=== PATIENT | female | born 1990 | race Caucasian/White ===

== ENCOUNTER 2018-02-25 22:15 | Emergency (ER) | payer BC ==
[2018-02-25] MEDS ORDERED: Ketorolac 10 MG Tab PO ONE (22:16)
[2018-02-25] MEDS ORDERED: Ondansetron 4 MG Tab.DIS PO ONE (22:16)
[2018-02-25 22:40] LABS: CHLORIDE,CL 104 mEq/L (98-106); SODIUM,NA 139 mEq/L (136-145)
[2018-02-25] MEDS: Sodium Chloride 0.9% 1,000 ML IV ONE (22:41)
[2018-02-25] MEDS: fentaNYL 100 MCG/2 ML SDV IVPUSH ONE (22:44)
--- NOTE | 2018-02-25 22:44 | EDM.PDOC ---
ED HPI GENERAL MEDICAL PROBLEM - General Chief Complaint: General Stated Complaint: headache, nausea Time Seen by Provider: 02/25/18 22:21 - History of Present Illness INITIAL COMMENTS - FREE TEXT/NARRATIVE: Charleen is a 27 year old female who presents to the ED with c/o nausea, vomiting, headache, and back ache. She was seen in the clinic earlier today for threatened . She was [place] [facility] [place] US revealing no signs of intrauterine or extrauterine . She had positive test on . She did see OB provider at [facility] yesterday for initial OB exam. She reports she had lab work that showed UTI but has not heard of other results. Patent reports she continues to have back pain that radiates around to her abdomen. She reports she has been very emotional today and has been crying a lot. She reports she has had a severe headache. She reports she continues to have vaginal bleeding with cramping. Has changed pad 4 x today. Denies any other symptoms. Onset: Today Onset Date: 02/26/18 Duration: Constant Location: Reports: Head Quality: Reports: Ache Severity: Moderate Improves with: Reports: None Worsens with: Reports: None Associated Symptoms: Reports: Headaches, Nausea/Vomiting. 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 ED EXAM, GENERAL - Physical Exam Exam: See Below Exam Limited By: No Limitations General Appearance: Alert, WD/WN, No Apparent Distress Eye Exam: Bilateral Eye: PERRL Head: Atraumatic, Normocephalic Neck: Normal Inspection, Supple, Non-Tender, Full Range of Motion Respiratory/Chest: No Respiratory Distress, Lungs Clear, Normal Breath Sounds, No Accessory Muscle Use, Chest Non-Tender Cardiovascular: Normal Peripheral Pulses, Regular Rate, Rhythm, No Edema, No Gallop, No JVD, No Murmur, No Rub GI/Abdominal: Normal Bowel Sounds, Soft, No Organomegaly, No Distention, No Abnormal Bruit, No Mass, Pelvis Stable, Tender (RLQ, LLQ) Back Exam: Normal Inspection, Full Range of Motion. No: CVA Tenderness (L), CVA Tenderness (R) Extremities: Normal Inspection, Normal Range of Motion, Non-Tender, Normal Capillary Refill, No Pedal Edema Neurological: Alert, Oriented, Normal Cognition Psychiatric: Tearful Skin Exam: Warm, Dry, Intact, Normal Color, No Rash Lymphatic: No Adenopathy Course - Orders/Labs/Meds Orders: Active Orders 24 hr Category Date Time Status Ketorolac [Take Home: Ketorolac 10 MG, 4 Tab Pack] Med 02/25/18 23:52 Once 2 packet PO ONETIME ONE Ondansetron [Take Home: Ondansetron ODT 4 MG, 2 Tab Med 02/25/18 23:53 Once Pack] 2 packet PO ONETIME ONE Ondansetron [Zofran] Med 02/25/18 22:27 Active 4 mg IVPUSH Q6H PRN cefTRIAXone [Rocephin] Med 02/25/18 22:45 Active 1 gm IVPUSH Q24H Medication Orders Ceftriaxone Sodium (Rocephin) 1 gm IVPUSH Q24H KHRIS Last Admin: 02/25/18 23:00 Dose: 1 gm Ondansetron HCl (Zofran) 4 mg IVPUSH Q6H PRN PRN Reason: Nausea Last Admin: 02/25/18 22:47 Dose: 4 mg Labs: Laboratory Tests 02/25/18 02/25/18 Range/Units 22:17 22:24 WBC 9.1 (5.0-10.0) 10^3/uL RBC 4.23 (4.00-5.50) 10^6/uL Hgb 11.5 L (12.0-16.0) g/dL Hct 36.2 L (37.0-47.0) % MCV 85.6 (82.0-94.0) fL MCH 27.2 (27.0-32.0) pg MCHC 31.8 L (33.0-38.0) g/dL RDW Coeff of Guera 13.9 (11.0-15.0) % Plt Count 318 (150-400) 10^3/uL Neut % (Auto) 71.0 (35-85) % Lymph % (Auto) 22.1 (10-55) % Green % (Auto) 6.4 (0-16) % Eos % (Auto) 0.3 (0-5) % Baso % (Auto) 0.2 (0-3) % Neut # (Auto) 6.47 (1.80-7.00) 10^3/uL Lymph # (Auto) 2.01 (1.00-4.80) 10^3/uL Green # (Auto) 0.58 (0.00-0.80) 10^3/uL Eos # (Auto) 0.03 (0.00-0.45) 10^3/uL Baso # (Auto) 0.02 10^3/uL Sodium 139 (136-145) mEq/L Potassium 3.7 (3.5-5.0) mEq/L Chloride 104 (98-106) mEq/L Carbon Dioxide 29 (21-32) mmol/L BUN 10 (7-18) mg/dL Creatinine 0.7 (0.6-1.0) mg/dL Est Cr Clr Drug Dosing TNP Estimated GFR (MDRD) > 60 (>=60) mL/min Glucose 126 H D (75-99) mg/dL Calcium 8.6 (8.4-10.1) mg/dL Total Bilirubin 0.5 (0.0-1.0) mg/dL AST 23 (15-37) U/L ALT 34 (12-78) U/L Alkaline Phosphatase 98 (46-116) U/L Total Protein 6.6 (6.4-8.2) g/dL Albumin 3.6 (3.4-5.0) g/dL Meds: Medications Generic Name Dose Route Start Last Admin Trade Name Freq PRN Reason Stop Dose Admin Ceftriaxone Sodium 1 gm 02/25/18 22:45 02/25/18 23:00 Rocephin IVPUSH 1 gm Q24H KHRIS Administration Ondansetron HCl 4 mg 02/25/18 22:27 02/25/18 22:47 Zofran IVPUSH 4 mg Q6H PRN Administration Nausea Discontinued Medications Generic Name Dose Route Start Last Admin Trade Name Freq PRN Reason Stop Dose Admin Fentanyl 50 mcg 02/25/18 22:29 02/25/18 22:44 Sublimaze IVPUSH 02/25/18 22:30 50 mcg ONETIME ONE Administration Sodium Chloride 1,000 mls @ 999 mls/hr 02/25/18 22:23 02/25/18 22:41 Normal Saline IV 02/25/18 23:23 999 mls/hr .BOLUS ONE Administration - Re-Assessments/Exams Free Text/Narrative Re-Assessment/Exam: Discussed lab results with patient. Called [place] [facility] [place] beta hcg quant of 8.4 earlier today. Patient's headache and back ache improved with IVF, fentanyl, and zofran. She reports she is feeling much better. Admits that she has been crying most of the day. Feels comfortable with discharge home. Departure - Departure Time of Disposition: 23:53 Disposition: Home, Self-Care 01 Condition: Fair Clinical Impression: Complete miscarriage Headache Qualifiers: Headache type: unspecified Headache chronicity pattern: acute headache Intractability: not intractable Qualified Code(s): R51 - Headache Nausea & vomiting Qualifiers: Vomiting type: unspecified Vomiting Intractability: non-intractable Qualified Code(s): R11.2 - Nausea with vomiting, unspecified - Discharge Information *PRESCRIPTION DRUG MONITORING PROGRAM REVIEWED*: Not Applicable *COPY OF PRESCRIPTION DRUG MONITORING REPORT IN PATIENT MALLORY: Not Applicable Instructions: Miscarriage, [id number] Forms: ED Department Discharge Additional Instructions: Toradol every 6 hours as needed for headache/pain Zofran every 6 hours as needed for nausea Push fluids to stay hydrated Start antibiotic as prescribed by OB for UTI tomorrow morning. Did receive one dose of antibiotic this evening. Rest as much as possible the next few days Bleeding should gradually decrease over the next few days. Continue vitamin daily Follow up if as needed - My Orders Last 24 Hours: My Active Orders 02/25/18 22:27 Ondansetron [Zofran] 4 mg IVPUSH Q6H PRN 02/25/18 22:45 cefTRIAXone [Rocephin] 1 gm IVPUSH Q24H 02/25/18 23:52 Ketorolac [Take Home: Ketorolac 10 MG, 4 Tab Pack] 2 packet PO ONETIME ONE 02/25/18 23:53 Ondansetron [Take Home: Ondansetron ODT 4 MG, 2 Tab Pack] 2 packet PO ONETIME ONE - Assessment/Plan Last 24 Hours: My Active Orders 02/25/18 22:27 Ondansetron [Zofran] 4 mg IVPUSH Q6H PRN 02/25/18 22:45 cefTRIAXone [Rocephin] 1 gm IVPUSH Q24H 02/25/18 23:52 Ketorolac [Take Home: Ketorolac 10 MG, 4 Tab Pack] 2 packet PO ONETIME ONE 02/25/18 23:53 Ondansetron [Take Home: Ondansetron ODT 4 MG, 2 Tab Pack] 2 packet PO ONETIME ONE
[2018-02-25] MEDS: Ondansetron 4 MG/2 ML SDV IVPUSH PRN (22:47)
[2018-02-25] MEDS: cefTRIAXone 1 GM Vial IVPUSH SCH (23:00)
[2018-02-26] MEDS: Take Home: Ondansetron 4 MG Tab.DIS, 2 Tab Pack PO ONE (00:19)
[2018-02-26] MEDS: Take Home: Ketorolac 10 MG Tab, 4 Tab Pack PO ONE (00:19)
== END 2018-02-26 00:25 | disposition home or self-care (01) ==
LOC: CC.ED 22:15
DX: O03.9 Complete or unspecified spontaneous abortion without complication (principal); R11.2 Nausea with vomiting, unspecified
CPT/HCPCS: 36415; 80053; 85025; 96365; 96375; 99284; A9270-GY; J0696; J2405; J3010; J7030

== ENCOUNTER 2018-08-12 10:55 | Emergency (ER) | payer BC ==
[2018-08-12] MEDS ORDERED: Sodium Chloride 0.9% 10 ML Syringe FLUSH PRN (11:03)
[2018-08-12] MEDS ORDERED: Sodium Chloride 0.9% 1,000 ML IV ONE (11:05)
[2018-08-12] MEDS ORDERED: Acetaminophen 500 MG Tab PO ONE (11:13)
[2018-08-12 11:24] LABS: CHLORIDE,CL 104 mEq/L (98-106); SODIUM,NA 137 mEq/L (136-145)
--- NOTE | 2018-08-12 13:03 | EDM.PDOC ---
ED HPI GENERAL MEDICAL PROBLEM - General Chief Complaint: Syncope Stated Complaint: "passed out at work" Time Seen by Provider: 08/12/18 11:00 Source of Information: Reports: Patient History Limitations: Reports: No Limitations - History of Present Illness INITIAL COMMENTS - FREE TEXT/NARRATIVE: patient is a 27 year old female who is a AB1 who is approximately 20 weeks who has had no problems with this . who states she got lightheaded at work and had to sit down but did not pass out. She states her vision became tunneled and her ears. she states that she only had coffee and a cookie for breakfast. she denies pain and states she feels fine now . can feel baby move. 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 - Physical Exam Exam: See Below Exam Limited By: No Limitations General Appearance: Alert, WD/WN, No Apparent Distress Ears: Normal External Exam, Normal Canal, Hearing Grossly Normal, Normal TMs Nose: Normal Inspection, Normal Mucosa, No Blood Throat/Mouth: Normal Inspection, Normal Lips, Normal Teeth, Normal Gums, Normal Oropharynx, Normal Voice, No Airway Compromise Head Exam: Atraumatic, Normocephalic Neck: Normal Inspection, Supple, Non-Tender Respiratory/Chest: No Respiratory Distress, Lungs Clear, Normal Breath Sounds, No Accessory Muscle Use, Chest Non-Tender Cardiovascular: Normal Peripheral Pulses, Regular Rate, Rhythm, No Edema, No JVD GI/Abdominal: Normal Bowel Sounds, Soft, Non-Tender, No Distention, Pelvis Stable, Other (Uterus palpated at the umbilicus. ) Extremities: Normal Inspection, Normal Range of Motion, Normal Capillary Refill Psychiatric: Normal Affect, Normal Mood Skin Exam: Warm, Dry, Intact, Normal Color, No Rash Course - Vital Signs Last Recorded V/S: Last Vital Signs Temp 98.5 F 08/12/18 10:58 Pulse 87 08/12/18 10:58 Resp 18 08/12/18 10:58 BP 132/71 08/12/18 10:58 Pulse Ox 100 08/12/18 10:58 Orthostatic Blood Pressure [ 118/67 Standing] Orthostatic Blood Pressure [ 118/64 Sitting] Orthostatic Blood Pressure [ 115/70 Supine] - Orders/Labs/Meds Orders: Active Orders 24 hr Category Date Time Status Heart Tones [RC] ASDIRECTED Care 08/12/18 11:04 Orthostatic Vital Signs [RC] ASDIRECTED Care 08/12/18 11:14 Active Sodium Chloride 0.9% [Saline Flush] Med 08/12/18 11:03 Active 10 ml FLUSH ASDIRECTED PRN Saline Lock Insert [OM.PC] Routine Oth 08/12/18 11:03 Ordered Medication Orders Sodium Chloride (Saline Flush) 10 ml FLUSH ASDIRECTED PRN PRN Reason: Keep Vein Open Labs: Laboratory Tests 08/12/18 08/12/18 Range/Units 11:10 11:10 WBC 9.1 (5.0-10.0) 10^3/uL RBC 3.82 L (4.00-5.50) 10^6/uL Hgb 11.0 L (12.0-16.0) g/dL Hct 33.9 L (37.0-47.0) % MCV 88.7 (82.0-94.0) fL MCH 28.8 (27.0-32.0) pg MCHC 32.4 L (33.0-38.0) g/dL RDW Coeff of Guera 14.9 (11.0-15.0) % Plt Count 205 (150-400) 10^3/uL MPV 8.6 fL Sodium 137 (136-145) mEq/L Potassium 3.9 (3.5-5.0) mEq/L Chloride 104 (98-106) mEq/L Carbon Dioxide 25 (21-32) mmol/L BUN 9 (7-18) mg/dL Creatinine 0.6 (0.6-1.0) mg/dL Est Cr Clr Drug Dosing 119.47 mL/min Estimated GFR (MDRD) > 60 (>=60) mL/min Glucose 92 (75-99) mg/dL Calcium 8.5 (8.4-10.1) mg/dL Meds: Medications Generic Name Dose Route Start Last Admin Trade Name Freq PRN Reason Stop Dose Admin Sodium Chloride 10 ml 08/12/18 11:03 Saline Flush FLUSH ASDIRECTED PRN Keep Vein Open Discontinued Medications Generic Name Dose Route Start Last Admin Trade Name Freq PRN Reason Stop Dose Admin Acetaminophen 1,000 mg 08/12/18 11:13 08/12/18 11:32 Tylenol Extra Strength PO 08/12/18 11:14 1,000 mg ONETIME ONE Administration Sodium Chloride 1,000 mls @ 1,000 mls/hr 08/12/18 11:05 08/12/18 11:32 Normal Saline IV 08/12/18 12:04 1,000 mls/hr .BOLUS ONE Administration - Re-Assessments/Exams Free Text/Narrative Re-Assessment/Exam: 08/12/18 13:05 patient had IV established and was given one liter of NS and had no further symptoms while in the ER> Patient had negative orthostatics and FHT where 140. Departure - Departure Time of Disposition: 13:07 Disposition: Home, Self-Care 01 Condition: Good Clinical Impression: Vasovagal syncope, Dehydration during - Discharge Information *PRESCRIPTION DRUG MONITORING PROGRAM REVIEWED*: No *COPY OF PRESCRIPTION DRUG MONITORING REPORT IN PATIENT MALLORY: No Instructions: Dehydration, Adult, Syncope, Ajhr-jc-Nort Additional Instructions: Push clear liquids. Work note for today and tomorrow . Follow up with Primary care or OB on Tuesday Return if worse. - My Orders Last 24 Hours: My Active Orders 08/12/18 11:03 Sodium Chloride 0.9% [Saline Flush] 10 ml FLUSH ASDIRECTED PRN Saline Lock Insert [OM.PC] Routine 08/12/18 11:04 Heart Tones [RC] ASDIRECTED 08/12/18 11:14 Orthostatic Vital Signs [RC] ASDIRECTED - Assessment/Plan Last 24 Hours: My Active Orders 08/12/18 11:03 Sodium Chloride 0.9% [Saline Flush] 10 ml FLUSH ASDIRECTED PRN Saline Lock Insert [OM.PC] Routine 08/12/18 11:04 Heart Tones [RC] ASDIRECTED 08/12/18 11:14 Orthostatic Vital Signs [RC] ASDIRECTED Plan: Patient will push clear liquids. Take today and tomorrow off work and follow up with PCP or OB on tuesday REturn if worse.
== END 2018-08-12 13:18 | disposition home or self-care (01) ==
LOC: CC.ED 10:55
DX: O99.282 Endocrine, nutritional and metabolic diseases complicating pregnancy, second trimester (principal); E86.0 Dehydration; Z3A.20 20 weeks gestation of pregnancy; Z87.891 Personal history of nicotine dependence
CPT/HCPCS: 36415; 80048; 85027; 96365; 99284; A9270-GY; J7030

== ENCOUNTER 2019-04-12 18:05 | Emergency (ER) | payer BC ==
[2019-04-12] MEDS ORDERED: Ketorolac 30 MG/ML SDV IM ONE (18:35)
[2019-04-12] MEDS ORDERED: Promethazine 25 MG/ML SDV IM ONE (18:35)
--- NOTE | 2019-04-12 18:43 | EDM.PDOC ---
ED HPI GENERAL MEDICAL PROBLEM - General Chief Complaint: General Stated Complaint: nausea, KIMBLE s/p deaugmentation Time Seen by Provider: 04/12/19 18:20 Source of Information: Reports: Patient History Limitations: Reports: No Limitations - History of Present Illness INITIAL COMMENTS - FREE TEXT/NARRATIVE: Had breast reduction on Tuesday and was discharged on oxycodone 5/325 mg. She states it doesn't help much. Started vomiting Tuesday pm after she was at home. Has not been able to eat much since being home due to nausea. She has developed a headache today which is getting worse. States the oxy isn't helping the headache today either. No diarrhea or constipation. Has had a fever at home but is afebrile here. Has not changed the dressings. Onset: Gradual Location: Reports: Head, Chest Quality: Reports: Throbbing Associated Symptoms: Reports: Fever/Chills, Headaches, Nausea/Vomiting Treatments CLEATER: Reports: Acetaminophen, Other Medication(s) Bilateral Breast Pain Score (Numeric/FACES): 9 - Related Data Allergies Allergy/AdvReac Type Severity Reaction Status Date / Time No Known Allergies Allergy Verified 04/12/19 18:08 Home Meds: Home Meds Esomeprazole Magnesium [Nexium 24Hr] 20 mg PO DAILY 08/12/18 [History] Ondansetron [Zofran ODT] 4 mg PO Q6H PRN 04/12/19 [History] oxyCODONE HCl/Acetaminophen [Oxycodone-Acetaminophen 5-325] 1 tab PO Q4H PRN 04/21 [History] Past Medical History Gastrointestinal History: Reports: GERD Genitourinary History: Reports: Other (See Below) Other Genitourinary History: current UTI 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 Denies: Chills HEENT: Reports: No Symptoms Respiratory: Reports: No Symptoms GI/Abdominal: Reports: Nausea, Vomiting. Denies: Constipation, Diarrhea : Reports: No Symptoms Musculoskeletal: Reports: No Symptoms Skin: Reports: Wound (from surgery) Neurological: Reports: Headache ED EXAM, GENERAL - Physical Exam Exam: See Below Exam Limited By: No Limitations General Appearance: Alert, WD/WN, Moderate Distress Ears: Normal External Exam, Normal Canal, Normal TMs Throat/Mouth: Normal Inspection, Normal Oropharynx Head: Atraumatic, Normocephalic Neck: Normal Inspection, Supple, Non-Tender Respiratory/Chest: No Respiratory Distress, Lungs Clear, Normal Breath Sounds Cardiovascular: Regular Rate, Rhythm GI/Abdominal: Normal Bowel Sounds, Soft (Female) Exam: Other (incisions noted from the breast reduction noted bilaterally. Bruising noted but not red, warm or draining. Dressing intact.) Extremities: Normal Inspection, No Pedal Edema Neurological: Alert, Oriented Skin Exam: Warm, Dry Course - Vital Signs Last Recorded V/S: Last Vital Signs Temp 98.2 F 04/12/19 18:06 Pulse 98 04/12/19 18:06 Resp 16 04/12/19 18:06 BP 136/85 04/12/19 18:06 Pulse Ox 98 04/12/19 18:06 - Orders/Labs/Meds Meds: Medications Discontinued Medications Generic Name Dose Route Start Last Admin Trade Name Kisha PRN Reason Stop Dose Admin Ketorolac Tromethamine 60 mg 04/12/19 18:35 04/12/19 18:42 Toradol IM 04/12/19 18:36 60 mg ONETIME ONE Administration Ketorolac Tromethamine 2 packet 04/12/19 18:47 Take Home: Ketorolac 10 Mg, 4 Tab Pack PO 04/12/19 18:48 ONETIME ONE Promethazine HCl 50 mg 04/12/19 18:35 04/12/19 18:42 Phenergan IM 04/12/19 18:36 50 mg STAT ONE Administration Departure - Departure Time of Disposition: 18:44 Disposition: Home, Self-Care 01 Condition: Good Clinical Impression: Nausea in adult, Post-operative pain, Headache - Discharge Information *PRESCRIPTION DRUG MONITORING PROGRAM REVIEWED*: Not Applicable *COPY OF PRESCRIPTION DRUG MONITORING REPORT IN PATIENT MALLORY: Not Applicable Referrals: Willi Salgado MD [Primary Care Provider] - Forms: ED Department Discharge Additional Instructions: Try to take the zofran prior to pain meds. toradol 10 mg every 6 hours as needed for pain From the pharmacy get tylenol with codeine and start them tomorrow. take zofran first and try to eat something prior. - Problem List & Annotations (1) Nausea in adult SNOMED Code(s): 261443962 Code(s): R11.0 - NAUSEA Status: Acute Priority: High Current Visit: No (2) Post-operative pain SNOMED Code(s): 247599751 Code(s): G89.18 - OTHER ACUTE POSTPROCEDURAL PAIN Status: Acute Priority : High Current Visit: No (3) Headache SNOMED Code(s): 98430135 Code(s): R51 - HEADACHE Status: Acute Priority: Medium Current Visit: No Qualifiers: Headache type: tension-type Headache chronicity pattern: acute headache Intractability: intractable Qualified Code(s): G44.201 - Tension-type headache , unspecified, intractable - Problem List Review Problem List Initiated/Reviewed/Updated: Yes
[2019-04-12] MEDS ORDERED: Take Home: Ketorolac 10 MG Tab, 4 Tab Pack PO ONE (18:47)
== END 2019-04-12 19:15 | disposition home or self-care (01) ==
LOC: CC.ED 18:05
DX: G89.18 Other acute postprocedural pain (principal); L76.32 Postprocedural hematoma of skin and subcutaneous tissue following other procedure; R51 Headache; R11.2 Nausea with vomiting, unspecified; Z98.890 Other specified postprocedural states; Z98.82 Breast implant status; Z87.891 Personal history of nicotine dependence
CPT/HCPCS: 96372; 99283; A9270; J1885; J2550

== ENCOUNTER → 2021-07-10 | Day surgery (SDC) | payer BC ==
[~2021-07-10] MED LIST: Lactated Ringers 1,000 ML IV SCH; Lidocaine 2% 5 ML SDV ONE; Midazolam 1 MG/ML 2 ML SDV ONE; Ondansetron 4 MG/2 ML SDV IVPUSH PRN; Propofol 200 MG/20 ML SDV ONE; fentaNYL 100 MCG/2 ML SDV ONE
--- NOTE | 2021-07-10 12:49 | OR ---
DATE OF OPERATION: 07/10/2021 PREOPERATIVE DIAGNOSIS: CHRONIC ABDOMINAL PAIN. POSTOPERATIVE DIAGNOSIS: CHRONIC ABDOMINAL PAIN. SURGEON: Willi Salgado MD PROCEDURE: DIAGNOSTIC ESOPHAGOGASTRODUODENOSCOPY WITH BIOPSIES X3, MARCIA. ANESTHESIA: MAC. COMPLICATIONS: None. SPECIMEN: 1. Duodenal bulb biopsy x1. 2. Antral biopsy x2. 3. Antral MARCIA. FINDINGS: 1. Full-length diagnostic EGD. 2. Chronic-appearing antral gastritis, mild to moderate. 3. Minimal duodenitis, duodenal bulb. RECOMMENDATIONS: Medical followup pending pathology reports. INDICATIONS: Patient has been having some persistent abdominal pain. She is iron deficient. Dr. Choe sent her for diagnostic EGD. DESCRIPTION OF PROCEDURE: The patient was prepped and draped, placed in the left lateral decubitus position. A lubricated Olympus gastroscope was inserted over a bite block and advanced to cricopharyngeus area, with swallow easily intubated into the esophagus. The esophageal lining was benign in its entire course. The Z-line was crisp and sharp at 37 cm. No spontaneous reflux, hernia or lesions were seen. Specifically no strictures, ulceration, or Black's changes. The scope was advanced into the stomach through the pylorus and into the second portion of the duodenum. This was benign. The duodenal bulb had a little bit of mild inflammation. Did do a biopsy of that. No ulceration or erosions were seen. The scope was brought back into the stomach and retroflexed. The upper fundus and cardia were completely benign. Upon straightening, the rest of the fundus appeared unremarkable. However, the antrum appeared to have a chronic and [id number] gastritis. No ulceration or erosions were seen. Two biopsies were taken along with a CLOtest from affected portion. Air was then suctioned. Scope removed without complication. DAMIEN/NORIS /[id number]
== END ==
LOC: CC.SDS 09:03
PROVIDERS: ATTEND Family Medicine
DX: K29.50 Unspecified chronic gastritis without bleeding (principal); K31.89 Other diseases of stomach and duodenum; K29.80 Duodenitis without bleeding
CPT/HCPCS: 36415; 43239; 84703; 87081; J2405; J7120; J2250; J2704; J3010

== ENCOUNTER → 2021-07-31 | Day surgery (SDC) | payer BC ==
[~2021-07-31] MED LIST changes: +Ketamine 200 MG/20 ML MDV ONE; -Lidocaine 2% 5 ML SDV ONE; -Ondansetron 4 MG/2 ML SDV IVPUSH PRN
== END ==
LOC: CC.SDS 13:26
PROVIDERS: ATTEND Family Medicine
DX: R19.5 Other fecal abnormalities (principal); R10.9 Unspecified abdominal pain; G89.29 Other chronic pain; D64.9 Anemia, unspecified; F41.9 Anxiety disorder, unspecified; I10 Essential (primary) hypertension; F32.A Depression, unspecified; Z80.0 Family history of malignant neoplasm of digestive organs; Z79.899 Other long term (current) drug therapy; Z98.890 Other specified postprocedural states
CPT/HCPCS: 00811; 36415; 84703; J2250; J2704; J3010; J7120